=== PATIENT | female | born 2000 | race Caucasian/White ===

== ENCOUNTER 2021-03-25 12:10 | Inpatient (IN) | payer MEDICAID ==
[~2021-03-25] VITALS: Ht 170.2 cm; Wt 81.7 kg
[2021-03-25] MEDS ORDERED: HYDR-643 (12:24)
[2021-03-25] MEDS ORDERED: CITA10TA7 (12:24)
[2021-03-25 15:35] LABS: HEMATOCRIT 42.9 % (36.0-47.0); HEMOGLOBIN 13.9 g/dl (12.0-15.5); MEAN CORPUSCULAR HEMOGLOBIN 28.4 pg (27.0-33.0); MEAN CORPUSCULAR HGB CONC 32.4 g/dl (32.0-36.5); MEAN CORPUSCULAR VOLUME 87.6 fl (80.0-96.0); PLATELET COUNT, AUTOMATED 255 10^3/uL (150-450); WHITE BLOOD COUNT 7.5 10^3/uL (4.0-10.0)
[2021-03-25 16:14] LABS: ACETAMINOPHEN LEVEL < 2.0 UG/ML (10.0-30.0); ALBUMIN 4.5 GM/DL (3.2-5.2); ALT/SGPT 33 U/L (12-78); BILIRUBIN,DIRECT 0.1 MG/DL (0.0-0.2); BILIRUBIN,TOTAL 0.4 MG/DL (0.2-1.0); BLOOD UREA NITROGEN 9 MG/DL (7-18); CALCIUM LEVEL 9.9 MG/DL (8.5-10.1); CARBON DIOXIDE LEVEL 27 MEQ/L (21-32); CHLORIDE LEVEL 104 MEQ/L (98-107); CREATININE FOR GFR 0.58 MG/DL (0.55-1.30); ETHYL ALCOHOL (ETHANOL) < 0.003 % (0.000-0.010); GLUCOSE, FASTING 88 MG/DL (70-100); POTASSIUM SERUM 4.4 MEQ/L (3.5-5.1); SALICYLATE LEVEL < 1.7 MG/DL (5.0-30.0); SODIUM LEVEL 137 MEQ/L (136-145); TOTAL PROTEIN 8.4 GM/DL (6.4-8.2)
[2021-03-25 16:26] LABS: HCG, SERUM QUALITATIVE NEGATIVE (NEGATIVE)
[2021-03-25 16:42] LABS: RSV AMPLIFICATION NEGATIVE (NEGATIVE)
[2021-03-25 22:13] LABS: AMPHETAMINES LEVEL URINE NEGATIVE (NEGATIVE); BARBITURATES URINE NEGATIVE (NEGATIVE); BENZODIAZEPINES URINE NEGATIVE (NEGATIVE); CANNABINOIDS URINE POSITIVE (NEGATIVE); COCAINE METABOLITE URINE NEGATIVE (NEGATIVE); METHADONE URINE NEGATIVE (NEGATIVE); OPIATES URINE NEGATIVE (NEGATIVE); PHENCYCLIDINE URINE NEGATIVE (NEGATIVE)
[2021-03-26] MEDS ORDERED: HYDR-643 PO (00:18)
[2021-03-26] MEDS ORDERED: CITA10TA6 PO (00:18)
[2021-03-26] MEDS ORDERED: HOME MED LIST COMPLETE! XX SCH (00:20)
[2021-03-26] MEDS: NICOTINE 14 MG/24 HR TRANSDERMAL TD SCH (09:00)
[2021-03-26] MEDS ORDERED: OLANZapine ORAL DISINTEGRATING TAB 5MG PO PRN (14:30)
[2021-03-26 21:34] VITALS: BP 117/73
[2021-03-27] MEDS ORDERED: MOM 30ML SUSPENSION UDC PO PRN (00:50)
[2021-03-27] MEDS ORDERED: MAALOX 30 ML SUSP *UDC PO PRN (00:50)
[2021-03-27] MEDS ORDERED: ACETAMINOPHEN 325 MG TAB PO PRN (00:50)
[2021-03-27] MEDS: NICOTINE 14 MG/24 HR TRANSDERMAL TD SCH (08:24)
[2021-03-27] MEDS ORDERED: hydrOXYzine 25 MG TAB PO PRN (11:55)
[2021-03-27] MEDS ORDERED: OLANZapine ORAL DISINTEGRATING TAB 5MG PO PRN (11:55)
[2021-03-27 16:54] VITALS: BP 115/65
[2021-03-27] MEDS: OLANZapine 2.5MG TABLET PO SCH (21:03)
[2021-03-27] MEDS: CitaloPRAM (CeleXA) 10 MG TABLET PO SCH (21:03)
[2021-03-27] MEDS: traZODone 50 MG TAB PO PRN (21:03)
[2021-03-28 06:47] VITALS: BP 146/82
[2021-03-28] MEDS ORDERED: ONDANSETRON 4 MG ORAL DISINTEGRATING TAB PO PRN (08:55)
[2021-03-28 16:51] VITALS: BP 122/76
[2021-03-28] MEDS: OLANZapine 2.5MG TABLET PO SCH (20:54)
[2021-03-28] MEDS: CitaloPRAM (CeleXA) 10 MG TABLET PO SCH (20:54)
[2021-03-28] MEDS: traZODone 50 MG TAB PO PRN (20:55)
[2021-03-29 06:33] VITALS: BP 147/87
[2021-03-29 16:51] VITALS: BP 130/83
[2021-03-29] MEDS: CitaloPRAM (CeleXA) 10 MG TABLET PO SCH (20:28)
[2021-03-29] MEDS: OLANZapine 2.5MG TABLET PO SCH (20:28)
[2021-03-29] MEDS: traZODone 50 MG TAB PO PRN (20:28)
[2021-03-30 07:10] VITALS: BP 107/58
[2021-03-30] MEDS ORDERED: CELE10TA PO (09:57)
[2021-03-30] MEDS ORDERED: OLAN2.5T25 PO (09:57)
[2021-03-30] MEDS ORDERED: TRAZ-252 PO (09:57)
== END 2021-03-30 13:36 | disposition home or self-care (01) | DRG 751 ==
LOC: M ED 12:10 → M ED INP 03-26 14:28 → M PSY 03-26 21:45
PROVIDERS: ADMIT Student in an Organized Health Care Education/Training Program; ATTEND Student in an Organized Health Care Education/Training Program
DX: F32.3 Major depressive disorder, single episode, severe with psychotic features (principal); F12.10 Cannabis abuse, uncomplicated; F79 Unspecified intellectual disabilities; R45.851 Suicidal ideations; Z63.0 Problems in relationship with spouse or partner; J45.909 Unspecified asthma, uncomplicated; Z79.899 Other long term (current) drug therapy; Z20.822 Contact with and (suspected) exposure to COVID-19; Z91.018 Allergy to other foods